=== PATIENT | female | born 1960 | race African-American/Black ===

== ENCOUNTER 2018-05-17 09:16 | Inpatient (IN) | payer MEDICARE, MEDICAID ==
[2018-05-17] MEDS ORDERED: diphenhydrAMINE 50 MG/ML VIAL ONE (09:28)
[2018-05-17] MEDS ORDERED: Ondansetron PF 4 MG/2 ML Vial ONE (09:35)
[2018-05-17 09:49] LABS: #Lymphocytes 1.3 thou/uL (1.20-3.40); #Monocytes 0.5 thou/uL (0.11-0.59); %Basophils 0.2 % (0.0-1.0); %Monocytes 3.8 % (0.0-10.0); %Neutrophils 85.9 % (42.0-75.0); Mean Corpuscular HGB CONC 31.6 g/dL (32.0-36.0); Mean Corpuscular Hemoglobin 28.8 pg (27.0-31.0); Mean Platelet Volume 6.8 fL (7.4-10.4); Platelet Count 316 thou/uL (130-400); RBC Distribution Width 13.1 % (11.5-14.5); Red Blood Cell (RBC) Count 5.57 mill/uL (4.20-5.40); White Blood Cell (WBC) Count 12.8 thou/uL (4.8-10.8)
[2018-05-17 09:53] LABS: PTT 25.9 SEC (22.9-36.1)
[2018-05-17 10:01] LABS: ALT (SGPT) 13 U/L (8-55); AST (SGOT) 23 U/L (5-34); Albumin 4.5 g/dL (3.5-5.0); Alkaline Phosphatase 116 U/L (40-150); Anion Gap 16 mmol/L (10-20); BUN (Urea Nitrogen) 4 mg/dL (9.8-20.1); Bilirubin, Total 0.5 mg/dL (0.2-1.2); CK (CPK) 400 U/L (29-168); Calc. Creatinine Clearance 0 mL/min (70-130); Calcium 9.8 mg/dL (7.8-10.44); Carbon Dioxide 25 mmol/L (22-29); Chloride 99 mmol/L (98-107); Estimated GFR-MDRD Greater than 90; Globulin 3.1 g/dL (2.4-3.5); Glucose 142 mg/dL (70-105); Potassium 3.6 mmol/L (3.5-5.1); Protein, Total 7.6 g/dL (6.0-8.3); Sodium 136 mmol/L (136-145)
[2018-05-17 10:03] LABS: CKMB 4.4 ng/mL (0-6.6); Troponin I Less than 0.010 ng/mL (< 0.028)
--- NOTE | 2018-05-17 10:03 | CT ---
BRAIN CT WITHOUT IV CONTRAST: History: 57-year-old female with history of stroke activation from [facility] with a positive M2 clot. The patient was sent here for brain perfusion and CTA. FINDINGS: There is a large abnormal area of low attenuation involving the left temporal, posterior frontal and parietal lobe regions, evidence for a very large left middle cerebral artery distribution infarct. Th ere is some focal opacities in the M2 segment region of the left middle cerebral artery. No evidence for acute hemorrhage. IMPRESSION: Essentially complete left middle cerebral artery distribution infarct changes with extensive edematou s changes. Focal calcific density in the M2 segment region of the left middle cerebral artery. No master dence for acute hemorrhage. There is a less than 2 mm diameter midline shift to the right. Dr. Servin is aware of the findings on this brain CT without contrast. POS: [facility]
--- NOTE | 2018-05-17 10:57 | CT ---
CT BRAIN PERFUSION: Date: 05-17-18 History: Stroke activation. M2 segment thrombus reported on outside study. Noncontrasted CT scan of t he brain just prior to this exam did demonstrate a large left MCA distribution infarction. FINDINGS: Materials Research Engineer images for the perfusion study demonstrate absence of flow and enhancement within the left midd le cerebral artery without significant enhancement of the collateral vessels in the left cerebral hem isphere compared to the right consistent with left MCA distribution infarction. The perfusion study i s nondiagnostic secondary to patient motion and area of penumbra is unable to be evaluated on this ex amination. IMPRESSION: 1. Nondiagnostic perfusion study secondary to patient motion, and a penumbra is not able to be evalua debora on this examination. The source images for the perfusion study again demonstrate large left MCA d istribution infarction which was noted on the noncontrasted CT exam also obtained earlier on this alfreda e. On the source images, there is no enhancement or flow seen within the left middle cerebral artery distribution with lack of significant collateral flow also on the left based on source images. 2. Above findings discussed with Dr. Servin on 05-17-18 at 1012 hours. POS: [facility]
[2018-05-17] MEDS ORDERED: Aspirin 300 MG Suppository ONE (11:13)
--- NOTE | 2018-05-17 13:07 | HP ---
PRIMARY CARE PHYSICIAN: Dr. Barry Eubanks, at [facility]. REASON FOR ADMISSION: Transfer from [facility] Emergency Room for acute left middle cer ebral artery cerebrovascular accident with right-sided weakness. HISTORY OF PRESENT ILLNESS: This is a 57-year-old -Omani female, who has a history of hype rtension, dyslipidemia, as well as history of recurrent deep vein thrombosis and pulmonary embolus, o n chronic anticoagulation therapy, who presented to [facility] Emergency Room for acute right-sided weakness and altered mental status. The patient last seen normal last night around 11:00 p.m. when she went to bed. Her mother was at [facility]. She reports that she woke up around 03:00 a.m. At that time, everything was fine, but she did not see the patient. She again woke up around 06:00 a.m., at that time she was trying to call he r and she was not responsive and she found the patient on the floor. At that time, she was unrespons laisha, she was not able to communicate, and she was having dense right upper and lower extremity weakne ss as well as facial droop. The patient's mother called paramedics, and subsequently, the patient wa s taken to [facility] Emergency Room. When patient went to [facility], at t hat time, patient was hypertensive. Stroke alert was activated from ambulance. The patient had CT b rain, which already showed large left MCA CVA and the patient was having right-sided weakness. Initi al NIH score was 29. Patient was needing perfusion study and that is why she was sent to our hospita . In our emergency room, the patient had a CT brain, which showed left MCA territory infarct with e xtensive edematous changes. CT brain reported focal calcific density in the M2 segment of the left M CA territory without any hemorrhage and there was slight midline shift. CT angiography with brain pe rfusion study was nondiagnostic, but it did show large left MCA distribution infarct. When I saw this patient, at that time, patient was unresponsive. She was not moving her right side. Initially, Cardene drip was started, but subsequently when blood pressure improved then Cardene drip was discontinued. At [facility] Emergency Room, the patient was started on Cardene drip. The patient was allergic to contrast, that is why she was given Benadryl and Solu-Medrol. REVIEW OF SYSTEMS: All review of systems tried to review with the patient, but unable to review at t his point, because patient is not following any commands. PAST MEDICAL HISTORY: Recurrent DVT and PE, chronic anticoagulation therapy with Xarelto, hypertensi on, dyslipidemia, cannabis abuse, tobacco abuse disorder. PAST SURGICAL HISTORY: Reviewed and negative. PAST PSYCHIATRIC HISTORY: Anxiety and depression. SOCIAL HISTORY: Patient has a history of smoking about 1 pack lasting for 2 days. She is smoking ma rijuana daily. She is a former drug abuser. She is currently on disability. She is single, lives b y herself. FAMILY HISTORY: No family history of coronary artery disease, stroke, or cancer. ALLERGIES: CONTRAST. CURRENT HOME MEDICATIONS: Ambien 12.5 mg p.o. at bedtime p.r.n., Xarelto 20 mg daily, Nexium 40 mg d aily, Lipitor 20 mg p.o. at bedtime, Tylenol #3 as needed basis, blood pressure medication. EMERGENCY ROOM COURSE: At [facility], patient was given Benadryl and Solu-Medrol. In [facility] emergency room, patient has received aspirin 300 mg rectally and Zofran initially. Cardene drip wa s started that was discontinued. Benadryl 50 mg was also given. PHYSICAL EXAMINATION: VITAL SIGNS: Currently, blood pressure 155/71, pulse 53, respiratory rate 14, temperature 96.4, satu ration 100% on room air, weight 68.3 kilograms. GENERAL: Patient is currently hypertensive, nonverbal, opens eyes on verbal command. HEAD: Normocephalic, atraumatic. EYES: The patient has a right gaze palsy. Pupils small and reactive to light. ENT: Oropharynx within normal limits. Moist mucous membranes. No oral lesion. No pharyngeal eryth michaela, no exudate. NECK: Supple, no JVD, no thyromegaly, no carotid bruit. LUNGS: Clear to auscultation without any rhonchi or rales. CARDIAC: S1 and S2 regular. No murmur, no gallop, no rub. ABDOMEN: Soft, bowel sounds present, nontender, nondistended. No organomegaly, no mass, no suprapub ic tenderness. BACK EXAMINATION: Unremarkable, no CVA tenderness. EXTREMITIES: Upper extremities, passive movement of all joints are normal. Lower extremities, passi ve movement of all joints are normal. Lower extremities, good distal pulsation. NEUROLOGIC: The patient is nonverbal. She opens eyes on verbal response. Speech is dysarthric, wili ble to communicate. Patient does have some right-sided facial droop, upper and lower extremity on th e right side is densely paraplegic. Left side spontaneous movement noted. Plantar extension on the right side. Sensation unable to assess. Reflexes symmetrical. Gait unable to assess. PSYCHIATRIC: Unable to assess. SKIN: No skin rash. HEMATOLOGICAL SYSTEM: No lymphadenopathy. SIGNIFICANT LABORATORY DATA: EKG showing sinus arrhythmia. CT brain with perfusion study showing la rge left MCA distribution infarction. CT brain without contrast showed left middle cerebral artery i nfarction with extensive edema. CBC: WBC 12.8, hemoglobin 16.0, platelets 316 with left shift. INR 1.0. BMP: Sodium 136, potassium 3.6, chloride 99, carbon dioxide 25, BUN 4, creatinine 0.78, gluco se 142, calcium 9.8. LFT: AST 23, ALT 13, alkaline phosphatase 116, albumin 4.5, CK 400, CK-MB 4.4, troponin I less than 0.010. [place] [facility] record reviewed. ASSESSMENT AND PLAN: 1. Acute encephalopathy due to acute cerebrovascular accident. 2. Acute right upper and lower extremity as well as facial weakness with global aphasia due to large left middle cerebral artery distribution infarct. 3. Hypertension with hypertensive emergency on admission. 4. Tobacco abuse disorder. 5. Marijuana abuse disorder. 6. Dyslipidemia. 7. History of deep vein thrombosis and pulmonary embolism, on chronic anticoagulation. 8. Gastroesophageal reflux disease. 9. History of drug abuse in past. PLAN: Admission in CCU for close neuro monitoring. Prognosis discussed with the patient's mother an lucille other family member at bedside in the emergency room. Discussed with them about option of PEG tube feeding if the patient does not have any meaningful recovery and if she fails swallow evaluation, carlota adkins in that case, they agreed with PEG tube placement. Initially, we will start with the tube feeding through the Dobbhoff tube, and eventually, if the patient does not have any improvement, then we will consider PEG tube placement. At that point, we will consult Gastroenterology. We are admitting thi s patient in CCU for close neuro check, because she is at high risk for aspiration as well as she has mild midline shift from large MCA. Family member agreed with intubation in case of respiratory dist ress. At this point, we will try to keep systolic blood pressure 160-180 and we will give her gentle IV fluid with NS 75 mL per hour, aspirin 300 mg rectally will be given. Once we have access of medi cation to give oral route through the tube, at that point we will resume cholesterol medication. We will continue the Lovenox 40 mg subcu daily for DVT prophylaxis, though the patient is taking Xarelto , which we will continue with the patient's oral intake resumed. We will give her Protonix 40 mg IV daily for GI prophylaxis. We will check urine drug screen, lipid profile, homocysteine, RPR as a par t of stroke workup. We will do echocardiography as a part of stroke workup and entire Stroke team wi ll be consulted including Neurology. This patient was not a candidate for any TPA given on the time of onset as well as she was not a cand idate for JENNIFER procedure based on Dr. Servin's discussion with the ER physician. Prognosis is guarded. CODE STATUS: Patient is FULL CODE. At this point, patient's mother is surrogate decision maker. Disposition plan based on clinical course. Most likely, this patient will need either rehab or SNF p lacement when patient is stabilized.
[2018-05-17] MEDS ORDERED: Eucerin (Mineral Oil/Petrolatum,White) 30 gm Jar TOP PRN (13:40)
[2018-05-17] MEDS ORDERED: Ondansetron PF 4 MG/2 ML Vial IVP PRN (13:40)
[2018-05-17] MEDS ORDERED: Labetalol HCl 100 MG/20 ML VIAL SLOW IVP PRN (13:40)
[2018-05-17] MEDS ORDERED: Sodium Chloride 0.65% Nasal 44 ML BOT EA NARE PRN (13:40)
[2018-05-17] MEDS ORDERED: Acetaminophen 650 MG Suppository PR PRN (13:40)
[2018-05-17] MEDS ORDERED: Bisacodyl 10 MG SUPP PR PRN (13:40)
[2018-05-17] MEDS ORDERED: Artificial Tears 18 DROP/0.9 ML EA EYE PRN (13:40)
[2018-05-17] MEDS: Sodium Chloride 0.9% 1,000 ML IV SCH (15:04)
[2018-05-17 15:26] VITALS: BMI 25.1
[2018-05-17] MEDS ORDERED: Iopamidol 370 76% 100 ML VIAL ONE (15:52)
[2018-05-17] MEDS: hydrALAZINE 20 MG/ML VIAL SLOW IVP PRN (16:21)
[2018-05-17 17:45] LABS: Bilirubin Negative (Negative); Blood, Urine Large (Negative); Clarity CLEAR (Clear); Glucose, Urine (Dipstick) Negative (Negative); Leukocyte Negative (Negative); Nitrite Negative (Negative); Protein, Urine (Dipstick) 30 mg/dL (Neg-Trace); Specific Gravity, Urine 1.038 (1.002-1.036)
[2018-05-17 17:48] LABS: Bacteria/HPF None Seen HPF (None Seen); Hyaline Casts/LPF 0-3 HYALINE CAST LPF (0-3 Hyaline); Pathc Cast-AUWi Flag 0.14 (0-2.49); RBC/HPF 21-50 HPF (0-3); Squamous Epithelial 0-3 HPF (0-3); WBC/HPF 0-3 HPF (0-3)
[2018-05-17 18:02] LABS: Amphetamine Not Detected (NotDetected); Barbiturates Screen Not Detected (NotDetected); Benzodiazepine Screen Not Detected (NotDetected); Cocaine Metabolite Screen Detected (NotDetected); Medtox Control Line Valid? VALID (VALID); Medtox Reader # READER 1; Methadone Not Detected (NotDetected); Methamphetamine Detected (NotDetected); Opiate Screen Not Detected (NotDetected); Oxycodone Screen Not Detected (NotDetected); Phencyclidine (PCP) Not Detected (NotDetected); THC/Cannabinoid Screen Detected (NotDetected); Tricyclic Screen Not Detected (NotDetected)
[2018-05-17] MEDS: Atorvastatin Calcium 40 MG TAB PO SCH (20:58)
[2018-05-17] MEDS ORDERED: Sodium Chloride 0.9% 500 ML IVPB SCH (22:30)
[2018-05-18 05:14] LABS: Prothrombin Time 13.4 SEC (12.0-14.7)
[2018-05-18 05:15] LABS: #Lymphocytes 2.2 thou/uL (1.20-3.40); #Monocytes 1.2 thou/uL (0.11-0.59); #Neutrophils 15.9 thou/uL (1.40-6.50); %Basophils 0.2 % (0.0-1.0); %Eosinophils 0.1 % (0.0-10.0); %Lymphocytes 11.2 % (21.0-51.0); %Monocytes 6.2 % (0.0-10.0); %Neutrophils 82.3 % (42.0-75.0); Hemoglobin 15.7 g/dL (12.0-16.0); Mean Corpuscular HGB CONC 30.9 g/dL (32.0-36.0); Mean Corpuscular Hemoglobin 28.5 pg (27.0-31.0); Mean Corpuscular Volume 92.1 fL (78.0-98.0); Mean Platelet Volume 6.9 fL (7.4-10.4); Platelet Count 284 thou/uL (130-400); RBC Distribution Width 13.3 % (11.5-14.5); White Blood Cell (WBC) Count 19.3 thou/uL (4.8-10.8)
[2018-05-18 05:33] LABS: ALT (SGPT) 12 U/L (8-55); AST (SGOT) 18 U/L (5-34); Alkaline Phosphatase 105 U/L (40-150); Anion Gap 12 mmol/L (10-20); BUN (Urea Nitrogen) 5 mg/dL (9.8-20.1); Bilirubin, Total 0.6 mg/dL (0.2-1.2); Calc. Creatinine Clearance 83 mL/min (70-130); Calcium 9.5 mg/dL (7.8-10.44); Carbon Dioxide 25 mmol/L (22-29); Cardiac Risk 3.1 (Less than 4.5); Chloride 102 mmol/L (98-107); Cholesterol 205 mg/dl (< 200 Desired); Estimated GFR-MDRD 90; Globulin 3.2 g/dL (2.4-3.5); Glucose 112 mg/dL (70-105); HDL Cholesterol 66 mg/dL (>60 Neg Risk); LDL Cholesterol, Calculated 123 mg/dL; Potassium 3.2 mmol/L (3.5-5.1); Protein, Total 7.2 g/dL (6.0-8.3); Sodium 136 mmol/L (136-145); Triglycerides 81 mg/dL (Less than 150)
[2018-05-18] MEDS: Sodium Chloride 0.9% 1,000 ML IV SCH (05:36)
[2018-05-18 05:52] LABS: Syphilis Antibody Nonreactive (Nonreactive); Syphilis Antibody Index 0.44 S/CO (<1.00 Non-Reactive)
[2018-05-18] MEDS: NS 0.9% w/ 20 MEQ KCL 1,000 ML/1,000 ML BAG IV SCH ×2 (07:52→19:25)
--- NOTE | 2018-05-18 09:11 | RAD ---
PORTABLE CHEST 1 VIEW: Date: 05/18/18 Time: 0749 hours HISTORY: Leukocytosis and CVA. FINDINGS/IMPRESSION: The heart size is normal. The lungs are expanded without lobar consolidation, pneumothoraces, or pleu ral effusions. There is some crowding of the interstitial markings in the right medial lung base. Thi s may represent a developing/early infiltrate. A follow-up exam would be helpful. POS: [facility]
[2018-05-18] MEDS: Aspirin 300 MG Suppository PR SCH (09:46)
[2018-05-18] MEDS: Pantoprazole 40 MG VIAL IVP SCH (09:46)
[2018-05-18] MEDS: Enoxaparin Sodium 40 MG/0.4 ML SYRINGE SC SCH (09:47)
--- NOTE | 2018-05-18 10:27 | PDOC.PN ---
- Subjective Encounter Start Date: 05/18/18 Encounter Start Time: 09:40 Patient seen and examined. No overnight events - Objective Resuscitation Status: Resuscitation Status FULL:Full Resuscitation MAR Reviewed: Yes Vital Signs & Weight: Vital Signs (12 hours) Temp 05/18/18 08:00 98.7 F 05/18/18 04:00 97.9 F 05/18/18 00:00 98.4 F Weight Weight 148 lb 9.465 oz Most Recent Monitor Data Heart Rate from ECG 54 NIBP 153/79 NIBP BP-Mean 103 Respiration from ECG 17 SpO2 100 I&O: 05/17/18 05/18/18 05/19/18 06:59 06:59 06:59 Intake Total 1670 224 Output Total 1120 70 Balance 550 154 Result Diagrams: 05/18/18 04:58 05/18/18 04:58 Radiology Reviewed by me: Yes (chest xray reviewed) EKG Reviewed by me: Yes (nsr) Phys Exam - Physical Examination Constitutional: NAD HEENT: PERRLA, moist MMs, sclera anicteric Neck: no JVD, supple Respiratory: no wheezing, no rales, no rhonchi Cardiovascular: RRR, no significant murmur, no rub Gastrointestinal: soft, non-tender, no distention, positive bowel sounds Musculoskeletal: no edema, pulses present right side dense weakness Lymphatic: no nodes Psychiatric: normal affect Skin: no rash, normal turgor Dx/Plan (1) Acute ischemic left middle cerebral artery (MCA) stroke Code(s): I63.512 - CEREB INFRC D/T UNSP OCCLS OR STENOS OF LEFT MID CEREB ART Status: Acute (2) Hypokalemia Code(s): E87.6 - HYPOKALEMIA Status: Acute (3) Leucocytosis Code(s): D72.829 - ELEVATED WHITE BLOOD CELL COUNT, UNSPECIFIED Status: Acute (4) Polysubstance abuse Code(s): F19.10 - OTHER PSYCHOACTIVE SUBSTANCE ABUSE, UNCOMPLICATED Status: Acute (5) Chronic anticoagulation Code(s): Z79.01 - NURSING HOME (CURRENT) USE OF ANTICOAGULANTS Status: Chronic (6) Dyslipidemia Code(s): E78.5 - HYPERLIPIDEMIA, UNSPECIFIED Status: Chronic (7) H/O deep venous thrombosis Code(s): Z86.718 - PERSONAL HISTORY OF OTHER VENOUS THROMBOSIS AND EMBOLISM Status: Chronic (8) Hypertension Code(s): I10 - ESSENTIAL (PRIMARY) HYPERTENSION Status: Chronic - Plan cont current plan of care, plan discussed w/ family, continue antibiotics, PT/OT , rn social services, DVT proph w/lovenox * given elevated wbc count and abnormal chest xray, will start empiric levaquin * stable for transfer to stroke floor * medication reviewed as below * symptomatic treatment * discussed with mother * stroke team on case. * change IVF with potassium Review of Systems - Review of Systems Other: unable to review due to aphasia and cognitive status - Medications/Allergies Allergies/Adverse Reactions: Allergies Allergy/AdvReac Type Severity Reaction Status Date / Time iodine Allergy Verified 05/17/18 12:31 Medications: Current Medications Acetaminophen (Tylenol) 650 mg AL Q4H PRN PRN Reason: Headache/Fever/Mild Pain (1-3) Artificial Tears (Tears Naturale) 2 drop EA EYE PRN PRN PRN Reason: Dry Eyes Aspirin (Aspirin) 300 mg AL DAILY [facility] Last Admin: 05/18/18 09:46 Dose: 300 mg Atorvastatin Calcium (Lipitor) 40 mg PO HS [facility] Last Admin: 05/17/18 20:58 Dose: Not Given Bisacodyl (Dulcolax) 10 mg AL DAILYPRN PRN PRN Reason: Constipation Enoxaparin Sodium (Lovenox) 40 mg SC 0900 [facility] Last Admin: 05/18/18 09:47 Dose: 40 mg Hydralazine HCl (Apresoline) 10 mg SLOW IVP Q4H PRN PRN Reason: SBP Greater Than 180 Last Admin: 05/17/18 16:21 Dose: 10 mg Potassium Chloride/Sodium Chloride (Ns 0.9% W/ 20 Meq Kcl) 1,000 ml in 1,000 mls @ 75 mls/hr IV .[id number] [facility] Last Admin: 05/18/18 07:52 Dose: 1,000 mls Levofloxacin 500 mg/ Device 100 mls @ 100 mls/hr IVPB Q24HR [facility] Labetalol HCl (Normodyne) 20 mg SLOW IVP Q4H PRN PRN Reason: SBP Greater Than 180 Mineral Oil/White Petrolatum (Eucerin Cream) 0 gm TOP BIDPRN PRN PRN Reason: Dry Skin Ondansetron HCl (Zofran) 4 mg IVP Q6H PRN PRN Reason: Nausea/Vomiting Pantoprazole Sodium (Protonix) 40 mg IVP DAILY [facility] Last Admin: 05/18/18 09:46 Dose: 40 mg Sodium Chloride (Cunningham Nasal Springer 0.65%) 0 ml EA NARE QIDPRN PRN PRN Reason: Nasal Congestion Sodium Chloride (Flush - Normal Saline) 10 ml IVF PRN PRN PRN Reason: Saline Flush Last Admin: 05/18/18 09:46 Dose: 10 ml
--- NOTE | 2018-05-18 13:50 | MRI ---
MRI BRAIN NONCONTRAST: HISTORY: CVA. COMPARISON: CT head from 05/17/2018. FINDINGS: A large wedge-shaped area of abnormal signal occupying the left basal ganglia, frontal and temporal l obes, includes the distribution of the left middle cerebral artery. There is restricted diffusion wi th abnormal ADC mapping signal loss. Increased FLAIR and T2 signal. Effacement of the involved sulc i. Effacement of the left ventricular system. Rightward shift of the septum pellucidum is now up to 0.8 cm. No new areas of infarct. Extensive motion artifact limits detail somewhat. IMPRESSION: Increasing cerebral edema associated with a large left middle cerebral artery infarct. Rightward jaleel ft of the septum pellucidum now up to 0.8 cm. POS: [facility]
[2018-05-18 14:11] LABS: ANA Symphony (Qualitative) Negative (Negative); CCP IgG Antibody 0.6 EliAU/mL (<7 Negative); EliA RAS New Method **** NEW METHOD ****; Rheumatoid Factor IgM Antibody 2.6 IU/mL (<3.5 Negative); dsDNA IgG Antibody Less than 0.5 IU/mL (<10 Negative)
--- NOTE | 2018-05-18 20:26 | ULT ---
CAROTID DUPLEX EXAMINATION: 05/18/18 INDICATION: History of stroke and hypertension. FINDINGS: There is complete occlusion of the left ICA. There is antegrade flow within both vertebral arteries. The peak systolic velocity in the right CCA is 93 cm/s and within the right ICA of 99 cm/s. The right ICA/CCA ratio is 1.0. The peak systolic velocity in the left CCA is 67 cm/s. IMPRESSION: 1. Complete occlusion of the left ICA. 2. No hemodynamically significant stenosis of the right ICA. POS: [facility]
[2018-05-18] MEDS: Atorvastatin Calcium 40 MG TAB PO SCH (20:31)
--- NOTE | 2018-05-18 22:03 | CON ---
DATE OF CONSULTATION: 05/18/2018 HISTORY OF PRESENT ILLNESS: Ms. De Dios is a 57-year-old female transferred from [facility], presented with right-sided weakness. She did not require any percutaneous intervention. I was consulted because of her presence in the Critical Care Unit. PAST MEDICAL HISTORY: 1. Remarkable for thromboembolic disease in the past on Xarelto. 2. Hypertension. 3. Liver disorder. 4. History of street drug use. 5. History of tobacco use. SOCIAL HISTORY: She is a pack a day smoker, smokes marijuana every day. The H& P says she is a former drug user. She is aphasic, so she can answer questions. FAMILY HISTORY: Negative for lung disease in early age. MEDICATIONS: Prior to admission, she was on Ambien, Xarelto, Nexium, Lipitor, Tylenol No.3. PHYSICAL EXAMINATION: VITAL SIGNS: Blood pressure 178/87, heart rate 50, respiratory rate 16, oximetry is 96. HEENT: Pupils are equal. Sclerae is anicteric. Extraocular movements appear full. NECK: Supple. She is hemiplegic on the right and aphasic. LUNGS: Clear. HEART: Regular rhythm. S1 and S2 are normal. ABDOMEN: Soft and nontender. EXTREMITIES: Without edema. LABORATORY AND X-RAY FINDINGS: Drug screens positive for methamphetamine, cocaine, and cannabinoids. White count is 19.3, hemoglobin 15.7, Sodium 136, potassium 3.2, chloride 102, bicarbonate 25, BUN 5, creatinine 0.79. Urine is remarkable for 21-50 red cells , 0-3 white cells. Coags are normal. IMPRESSION: Thrombotic cerebrovascular accident. PLAN: Continue supportive care. She has not having issues with airway protection at this time. [facility]
--- NOTE | 2018-05-18 23:17 | CON ---
DATE OF CONSULTATION: 05/18/2018 NEUROLOGIC CONSULTATION CONSULTING PHYSICIAN: Hospitalist Service. IMPRESSION: Left middle cerebral artery stroke, likely secondary to hypercoagulable state and possib ly some vasospasm related to her drug use. PLAN: 1. Repeat CT scan of the brain tomorrow to determine if there is any secondary bleeding. 2. Carotid ultrasound. 3. Continue current blood pressure management. 4. Restart anticoagulation once she can take medication by mouth. HISTORY OF PRESENT ILLNESS: Ms. De Dios is a 57-year-old white female with a known history of clottin g disorder and was supposed to be on anticoagulants. She came in with expressive aphasia and right-s ided weakness. Her initial CTA was inconclusive. She had an MRI of the brain, which subsequently re vealed a large area of ischemia involving the left middle cerebral artery territory. She was moved t o the ICU for monitoring. Her vital signs have been fairly stable, although she has gotten some teddy ycardic rhythms. She has remained responsive throughout the day. She has had some intermittent prabhu ing in her left side, but otherwise has been fairly stable. Echocardiogram has been performed, but t he results are pending. PAST MEDICAL HISTORY: As listed above. ALLERGIES: IODINE. SOCIAL HISTORY: Cocaine and methamphetamine use. FAMILY HISTORY: Not obtainable. REVIEW OF SYSTEMS: Not obtainable. PHYSICAL EXAMINATION: GENERAL: She is a thin middle-aged woman, lying in bed, in no apparent distress. VITAL SIGNS: Blood pressure 184/94, pulse 60 and sinus rhythm, respirations 18, temperature afebrile . Her sats are 99%. HEENT: Pupils are equal. Conjunctivae are clear. Eyes are deviated to the left. Cranium is normoc ephalic. NECK: Supple. EXTREMITIES: No cyanosis. NEUROLOGIC: She is mute, but would nod to questions and had followed some simple commands, although not completely. Cranial nerves showed a subtle facial droop. The right upper extremity is hypertoni c in a somewhat flexed posture. Relatively good tone in the right leg, but less spontaneous movement than as noted on the left. Plantar responses upgoing on the right, downgoing on the left. SUMMARY: This is a middle-aged woman who has suffered a fairly massive stroke in the left middle cer ebral artery territory. She has had some secondary cerebral edema and mild mass effect. We will con tinue close observation in the ICU for now. We can hopefully reestablish treatment once we have rule d out any secondary bleeding.
[2018-05-19 04:22] LABS: #Basophils 0.1 thou/uL (0.0-0.2); #Lymphocytes 2.1 thou/uL (1.20-3.40); #Monocytes 1.2 thou/uL (0.11-0.59); %Basophils 0.4 % (0.0-1.0); %Eosinophils 0.2 % (0.0-10.0); %Monocytes 7.2 % (0.0-10.0); %Neutrophils 79.2 % (42.0-75.0); Hemoglobin 16.3 g/dL (12.0-16.0); Mean Corpuscular HGB CONC 33.1 g/dL (32.0-36.0); Mean Corpuscular Hemoglobin 29.8 pg (27.0-31.0); Mean Corpuscular Volume 90.3 fL (78.0-98.0); Mean Platelet Volume 7.3 fL (7.4-10.4); Platelet Count 302 thou/uL (130-400); RBC Distribution Width 13.2 % (11.5-14.5); Red Blood Cell (RBC) Count 5.46 mill/uL (4.20-5.40); White Blood Cell (WBC) Count 16.4 thou/uL (4.8-10.8)
[2018-05-19 04:56] LABS: Anion Gap 15 mmol/L (10-20); BUN (Urea Nitrogen) 7 mg/dL (9.8-20.1); Calc. Creatinine Clearance 78 mL/min (70-130); Calcium 9.8 mg/dL (7.8-10.44); Carbon Dioxide 24 mmol/L (22-29); Chloride 100 mmol/L (98-107); Estimated GFR-MDRD 84; Glucose 117 mg/dL (70-105); Potassium 3.5 mmol/L (3.5-5.1); Sodium 135 mmol/L (136-145)
[2018-05-19] MEDS ORDERED: Mannitol 12.5 GM/50 ML IV SCH (06:15)
[2018-05-19] MEDS: Enoxaparin Sodium 40 MG/0.4 ML SYRINGE SC SCH (08:15)
--- NOTE | 2018-05-19 08:16 | CT ---
PRELIMINARY REPORT/[facility]/EMERGENTY AFTER-HOURS PROCEDURE Addendum created by Edgar Paulino MD on 05/19/2018 5:28 AM Central Time ([place] & [place]) THIS REPORT CONTA INS FINDINGS THAT MAY BE CRITICAL TO PATIENT CARE. The findings were verbally communicated via teleph one conference with CINTHIA DEAN at 5:27 AM MARKETING INTERN on 05/19/2018. The findings were acknowledged and und erstood. Initial Report created on 05/19/2018 4:48 AM Central Time ([place] & [place]) CT Head Without Intravenous Contrast EXAM DATE/TIME: 05/19/2018 4:24 AM CLINICAL HISTORY: 57 years old, female; Condition or disease; Other: Stroke; Patient HX: F/u stroke TECHNIQUE: Axial computed tomography images of the head/brain without intravenous contrast. COMPARISON: CTA Angio Head W WO Con W Perf 05/17/2018 9:34 AM FINDINGS: Brain: There is a large acute LEFT MCA territory infarct with hypoattenuation/loss of mcpherson-white diff erentiation involving the majority of the LEFT frontal temporoparietal lobes with brain edema resulti ng in mass effect and midline shift of approximately 9 mm, increased from prior. No acute intracrania l hemorrhage is appreciated at this time. Ventricles: There is partial effacement of the LEFT lateral ventricle with dilatation of the RIGHT te mporal horn. Bones/joints: Normal. No acute fracture. Sinuses: Normal as visualized. No acute sinusitis. Mastoid air cells: Normal as visualized. No mastoid effusion. Soft tissues: Normal. IMPRESSION: 1. Large LEFT MCA territory infarction as above with brain edema causing LEFT to RIGHT midline shift of 9 mm. 2. No acute intracranial hemorrhage is appreciated at this time. Thank you for allowing us to participate in the care of your patient. Dictated and Authenticated by: Edgar Paulino MD 05/19/2018 4:48 AM Central Time ([place] & [place]) FINAL REPORT EMERGENCY AFTER HOURS BRAIN CT WITHOUT IV CONTRAST: Date: 05/19/18 Time: 0425 hours FINDINGS/IMPRESSION: Large left MCA territory infarct with marked progressive brain edema with considerably worsening midl ine shift to the right, now measuring approximately 0.9 cm. No evidence for acute hemorrhage. Report in agreement with preliminary report given on-call by [facility]. POS: [facility]
[2018-05-19] MEDS: Pantoprazole 40 MG VIAL IVP SCH (08:18)
[2018-05-19] MEDS: Aspirin 300 MG Suppository PR SCH ×2 (08:19→12:10)
[2018-05-19] MEDS: NS 0.9% w/ 20 MEQ KCL 1,000 ML/1,000 ML BAG IV SCH (08:29)
[2018-05-19] MEDS ORDERED: Midazolam HCl 2 mg/2 ml Vial ONE (08:57)
[2018-05-19] MEDS ORDERED: Propofol 1,000 MG/100 ML VIAL IV ONE ×2 (08:58→13:40)
[2018-05-19] MEDS ORDERED: Midazolam HCl 2 mg/2 ml Vial IVP SCH (09:05)
[2018-05-19 09:51] LABS: Actual Bicarbonate (HCO3a) 23.1 mEq/L (22-28); Base Excess (BEa) 1.7 mEq/L (-2.0 to +3.0); CO2 Tension 28.4 mmHg (35.0-45.0); Calcium, Ionized 1.15 mmol/L (1.12-1.30); Carboxyhemoglobin (COHb) 1.1 gm% (0.0-3.0); Hemoglobin (Hb) 15.7 g/dL (12.0-16.0); O2 Tension (PaO2) 115.8 mmHg (80.0-100.0); Potassium - ABG Lab 3.09 mmol/L (3.70-5.30); pH, Arterial 7.53 (7.35-7.45)
[2018-05-19 09:55] LABS: Puncture Site RRA
--- NOTE | 2018-05-19 10:28 | PDOC.PN ---
- Subjective Encounter Start Date: 05/19/18 Encounter Start Time: 09:50 -: non-verbal pt is deteriorated, mother bedside, she is not responding - Objective Resuscitation Status: Resuscitation Status DNI:No Intubation MAR Reviewed: Yes Vital Signs & Weight: Vital Signs (12 hours) Temp Pulse 05/19/18 09:05 75 05/19/18 08:00 98.6 F 05/19/18 03:00 97 F L 05/18/18 23:00 98.6 F Weight Admit Weight 148 lb 9.465 oz Weight 148 lb 9.465 oz Most Recent Monitor Data Heart Rate from ECG 76 NIBP 120/87 NIBP BP-Mean 98 Respiration from ECG 16 SpO2 100 I&O: 05/18/18 05/19/18 05/20/18 06:59 06:59 06:59 Intake Total 1670 1113 Output Total 1120 2480 485 Balance 709 -3261 -935 Result Diagrams: 05/19/18 03:53 05/19/18 03:53 Radiology Reviewed by me: Yes (CT brain, MRI, carotid US noted) EKG Reviewed by me: Yes (NSR) Phys Exam - Physical Examination Constitutional: NAD HEENT: PERRLA, sclera anicteric Neck: no JVD, supple Respiratory: no wheezing, no rales, no rhonchi Cardiovascular: RRR, no significant murmur, no rub Gastrointestinal: soft, no distention, positive bowel sounds Musculoskeletal: no edema, pulses present unresponsive Lymphatic: no nodes Deviation from normal: unresponsive Skin: no rash, normal turgor Dx/Plan (1) Acute ischemic left middle cerebral artery (MCA) stroke Code(s): I63.512 - CEREB INFRC D/T UNSP OCCLS OR STENOS OF LEFT MID CEREB ART Status: Acute (2) Hypokalemia Code(s): E87.6 - HYPOKALEMIA Status: Acute (3) Leucocytosis Code(s): D72.829 - ELEVATED WHITE BLOOD CELL COUNT, UNSPECIFIED Status: Acute (4) Polysubstance abuse Code(s): F19.10 - OTHER PSYCHOACTIVE SUBSTANCE ABUSE, UNCOMPLICATED Status: Acute (5) Chronic anticoagulation Code(s): Z79.01 - RETIREMENT (CURRENT) USE OF ANTICOAGULANTS Status: Chronic (6) Dyslipidemia Code(s): E78.5 - HYPERLIPIDEMIA, UNSPECIFIED Status: Chronic (7) H/O deep venous thrombosis Code(s): Z86.718 - PERSONAL HISTORY OF OTHER VENOUS THROMBOSIS AND EMBOLISM Status: Chronic (8) Hypertension Code(s): I10 - ESSENTIAL (PRIMARY) HYPERTENSION Status: Chronic (9) Acute encephalopathy Code(s): G93.40 - ENCEPHALOPATHY, UNSPECIFIED Status: Acute (10) Brain herniation Code(s): G93.5 - COMPRESSION OF BRAIN Status: Acute (11) Cerebral edema Code(s): G93.6 - CEREBRAL EDEMA Status: Acute - Plan cont current plan of care, plan discussed w/ family * I spoke with mother about today's condition and discussed prognosis * pt's mother understood and she expressed wish that she does not want intubation but she was ok with doing CPR if needed * she also wanted to continue hydration and feeding * will consult neurosurgeon, to see if there is any option of care * if no further option, then will consult palliative care to discuss hospice to family * medication reviewed as below * symptomatic treatment * her prognosis is very poor. Review of Systems - Review of Systems Other: unable to review due to encephalopathy - Medications/Allergies Allergies/Adverse Reactions: Allergies Allergy/AdvReac Type Severity Reaction Status Date / Time iodine Allergy Verified 05/17/18 12:31 Medications: Current Medications Acetaminophen (Tylenol) 650 mg [place] Q4H PRN PRN Reason: Headache/Fever/Mild Pain (1-3) Artificial Tears (Tears Naturale) 2 drop EA EYE PRN PRN PRN Reason: Dry Eyes Aspirin (Aspirin) 300 mg [place] DAILY [facility] Last Admin: 05/18/18 09:46 Dose: 300 mg Atorvastatin Calcium (Lipitor) 40 mg PO HS [facility] Last Admin: 05/18/18 20:31 Dose: Not Given Bisacodyl (Dulcolax) 10 mg [place] DAILYPRN PRN PRN Reason: Constipation Enoxaparin Sodium (Lovenox) 40 mg SC 0900 [facility] Last Admin: 05/19/18 08:15 Dose: 40 mg Hydralazine HCl (Apresoline) 10 mg SLOW IVP Q4H PRN PRN Reason: SBP Greater Than 180 Last Admin: 05/17/18 16:21 Dose: 10 mg Potassium Chloride/Sodium Chloride (Ns 0.9% W/ 20 Meq Kcl) 1,000 ml in 1,000 mls @ 75 mls/hr IV .[id number] [facility] Last Admin: 05/19/18 08:29 Dose: 1,000 mls Levofloxacin 500 mg/ Device 100 mls @ 100 mls/hr IVPB Q24HR [facility] Labetalol HCl (Normodyne) 20 mg SLOW IVP Q4H PRN PRN Reason: SBP Greater Than 180 Mannitol (Mannitol) 25 gm IV Q6HR [facility] Mineral Oil/White Petrolatum (Eucerin Cream) 0 gm TOP BIDPRN PRN PRN Reason: Dry Skin Ondansetron HCl (Zofran) 4 mg IVP Q6H PRN PRN Reason: Nausea/Vomiting Pantoprazole Sodium (Protonix) 40 mg IVP DAILY [facility] Last Admin: 05/19/18 08:18 Dose: 40 mg Sodium Chloride ([place] Nasal [place] 0.65%) 0 ml EA NARE QIDPRN PRN PRN Reason: Nasal Congestion Sodium Chloride (Flush - Normal Saline) 10 ml IVF PRN PRN PRN Reason: Saline Flush Last Admin: 05/18/18 09:46 Dose: 10 ml
--- NOTE | 2018-05-19 10:34 | PDOC.EVN ---
Event Note - Event Note Event Note: advance care planning care note: This morning after examining pt and reviewing CT brain, I met to mother bedside , nurse taking care of her was present during conversation. Mainly I had discussion with mother about pt's current condition, her prognosis I also discussed with mother who states that she is next of care, about code status, goal of care, tube feeding, hydration and answered all her questions. Pt's mother states that she has belief in god and she does not want her to be alive on vent and she requested not keep her on ventilator but she was ok with CPR, discussed that only CPR may be futile if need arise without intubation. She wanted to continue at this time hydration and she is OK with tube feeding, I told that all these intervention are going to prolong poor quality of life today will see if neurosurgeon has to offer any thing, then will consider palliative care to discuss with family about hospice total time spent for these discussion 20 minutes.
[2018-05-19 13:37] LABS: Sodium 136 mmol/L (136-145)
[2018-05-19] MEDS: Mannitol 12.5 GM/50 ML IV SCH ×2 (14:12→18:10)
[2018-05-19] MEDS: hydrALAZINE 20 MG/ML VIAL SLOW IVP PRN ×2 (15:48→20:49)
--- NOTE | 2018-05-19 16:53 | PRG ---
DATE OF SERVICE: 05/19/2018 SUBJECTIVE: Ms. De Dios became progressively more obtunded this morning. Persistent hemiplegia. She did not have blown pupils. She has also been more hypertensive. She was reaching a point where I felt she was not going to protect her airway, so intubation was aubrey mmended after I met with her mother. OBJECTIVE: LUNGS: Remarkable for coarse equal breath sounds. HEART: Regular rhythm. ABDOMEN: Soft. EXTREMITIES: Without clubbing, cyanosis or edema. She is still hemiplegic. LABORATORY DATA: White count 16.4, hemoglobin 16.3, platelets 302,000. Sodium 135, potassium 3.5, chloride 100, bicarbonate 24, BUN 7, creatinine 0.84. Blood gas post intubation showed pH 7.53, CO2 28, PO2 115. Neurosurgery is planning to meet with the family. IMPRESSION: Massive thrombotic cerebrovascular accident with progressive decline with edema and midl ine shift on this morning CT. She is now intubated. CRITICAL CARE TIME: 35 minutes.
[2018-05-19] MEDS ORDERED: Propofol BOLUS 1,000 MG/100 ML VIAL IV PRN (17:09)
--- NOTE | 2018-05-19 17:47 | PRG ---
DATE OF PROGRESS: 05/19/2018 I reviewed records and imaging on [facility] and spoken with the family. Ms. De Dios is a 57-year-ol d woman with a hypercoagulability syndrome, who was transferred from [facility] in [facility] for large MCA infarct involving her dominant hemisphere. She is in the ICU currently and is ajit plegic on the right and aphasic. She is on the ventilator. The left side looks purposeful. I spent time around noon today and again at 5:00 today speaking with the patient's mother, Ms. Servin, and her sister and other relatives. Discussion focused on whether surgical intervention would be warranted for her in the future. I revi ewed with them the likely outcome of a craniectomy to relieve pressure and permanent dependence for c are, lack of communication skill and right hemiplegia, at best. This is not a life her mother would want for her and Ms. Servin has agreed not to pursue surgical intervention to decompress the cranium s hould the need arise in the future. Ms. De Dios can be managed medically with mannitol and aggressive medical therapy or she can be placed on comfort care and those decisions can be worked out within the coming 24-48 hours. Neurosurgery t jacquie will be around to answer questions during hospital stay, but the family expressed their wish not to have a hemicraniectomy.
--- NOTE | 2018-05-19 19:38 | OP ---
PROCEDURE: Intubation. DESCRIPTION OF PROCEDURE: The patient was not cooperative with mouth opening. I did not feel it wou ld be best to paralyze her to intubate her. A nasal trumpet with lidocaine jelly was placed in her l eft naris. Once this had been indwelling for a few minutes, this was removed and the bronchoscope wa s introduced into her left naris and passed down through her cords easily, followed by 7.5 endotrache al tube, which was secured above her griselda. Her left lower lobe, left upper lobe, right lower lobe, right middle lobe, and right upper lobe were well visualized. No endobronchial lesions were seen. There was no hypoxemia or hypotension with intubation. She was sedated with Versed and propofol once she was intubated.
[2018-05-19] MEDS: Atorvastatin Calcium 40 MG TAB PO SCH (20:48)
--- NOTE | 2018-05-20 | PRG ---
DATE OF SERVICE: 05/19/2018 NEUROLOGIC FOLLOWUP SUBJECTIVE: Ms. De Dios is now intubated secondary to some progressive lethargy that was necessitatin g protecting her airway. She is now on propofol drip. A followup CT scan of the brain showed a mode rate amount of shift from left to right with some early brainstem compression. The patient still has spontaneous movements on the left side despite the sedation. We started her on mannitol last evenin g. She has been consulted on by Neurosurgery for an opinion. Pulmonary Medicine is now on her case to manage the ventilator. I have explained to the family that situation is grave and prognosis for f unctional recovery is quite small. We will continue the current supportive measures and monitor clin ical course.
[2018-05-20] MEDS: NS 0.9% w/ 20 MEQ KCL 1,000 ML/1,000 ML BAG IV SCH ×2 (00:41→12:36)
[2018-05-20] MEDS: Propofol 1,000 MG/100 ML VIAL IV PRN ×2 (00:41→08:49)
[2018-05-20] MEDS: Mannitol 12.5 GM/50 ML IV SCH ×2 (01:07→06:31)
[2018-05-20 04:56] LABS: Anion Gap 15 mmol/L (10-20); BUN (Urea Nitrogen) 8 mg/dL (9.8-20.1); Calc. Creatinine Clearance 82 mL/min (70-130); Calcium 9.6 mg/dL (7.8-10.44); Carbon Dioxide 24 mmol/L (22-29); Chloride 105 mmol/L (98-107); Estimated GFR-MDRD 89; Glucose 118 mg/dL (70-105); Potassium 3.1 mmol/L (3.5-5.1); Sodium 141 mmol/L (136-145)
[2018-05-20 05:03] LABS: Hemoglobin 15.9 g/dL (12.0-16.0); Mean Corpuscular HGB CONC 31.4 g/dL (32.0-36.0); Mean Corpuscular Hemoglobin 28.3 pg (27.0-31.0); Mean Platelet Volume 7.4 fL (7.4-10.4); Platelet Count 284 thou/uL (130-400); RBC Distribution Width 13.1 % (11.5-14.5); Red Blood Cell (RBC) Count 5.63 mill/uL (4.20-5.40)
[2018-05-20 05:29] LABS: Band 8 % (5-11); Lymphocytes 2 % (21-51); MDiff Complete? YES; Monocytes 4 % (0-10); Neutrophil 86 % (42-75)
[2018-05-20 06:33] LABS: Actual Bicarbonate (HCO3a) 22.5 mEq/L (22-28); Base Excess (BEa) 1.3 mEq/L (-2.0 to +3.0); CO2 Tension 27.7 mmHg (35.0-45.0); Calcium, Ionized 1.19 mmol/L (1.12-1.30); Hemoglobin (Hb) 16.5 g/dL (12.0-16.0); O2 Tension (PaO2) 100.1 mmHg (80.0-100.0); Potassium - ABG Lab 3.17 mmol/L (3.70-5.30); pH, Arterial 7.53 (7.35-7.45)
[2018-05-20 06:36] LABS: Puncture Site LRA
[2018-05-20 06:37] LABS: ALV-art Gradient 150.475 (0-20)
[2018-05-20 08:00] VITALS: TEMP 99.1
--- NOTE | 2018-05-20 08:31 | PRG ---
DATE OF SERVICE: 05/20/2018 Overnight there has not been any remarkable changes. PHYSICAL EXAMINATION: VITAL SIGNS: Vital signs have been stable. HEENT: At this point her pupils are fixed and dilated. Her eyes are in midposition and doll's head maneuver, does not elicit any deviation. She has no corneal response. She continues to have a trunc al pain response with extensor posturing. She has been made DNR. Her serum osmolarity was 290 this morning. Going to hold her next mannitol dose. SUMMARY: Overall, the situation continues to deteriorate and I suspect that she will likely herniate and become brain .
--- NOTE | 2018-05-20 09:08 | PDOC.PN ---
- Subjective Encounter Start Date: 05/20/18 Encounter Start Time: 09:00 interim pt was nasally intubated, condition continue to deteriorate, now DNR, spoke with mother about condition - Objective Resuscitation Status: Resuscitation Status DNR:Do Not Resuscitate MAR Reviewed: Yes Vital Signs & Weight: Vital Signs (12 hours) Temp Pulse Resp BP 05/20/18 07:00 99.1 F 05/20/18 06:13 67 164/89 H 05/20/18 04:00 97.6 F 05/20/18 03:24 82 05/20/18 00:00 98.9 F 14 05/19/18 22:31 67 Weight Admit Weight 148 lb 9.465 oz Weight 148 lb 9.465 oz Most Recent Monitor Data Heart Rate from ECG 84 NIBP 162/96 NIBP BP-Mean 118 Respiration from ECG 28 SpO2 95 I&O: 05/19/18 05/20/18 05/21/18 06:59 06:59 06:59 Intake Total 1113 2341 Output Total 2480 3163 250 Balance -1367 -822 -250 Result Diagrams: 05/20/18 04:10 05/20/18 04:10 EKG Reviewed by me: Yes (nsr) Phys Exam - Physical Examination Constitutional: NAD intubated, sedated pupil not reactive to light Neck: no JVD, supple Respiratory: no wheezing, no rales, no rhonchi Cardiovascular: RRR, no significant murmur, no rub Gastrointestinal: soft, no distention, positive bowel sounds Musculoskeletal: no edema, pulses present unresponsive Lymphatic: no nodes Deviation from normal: unable to assess Skin: no rash, normal turgor Dx/Plan (1) Acute ischemic left middle cerebral artery (MCA) stroke Code(s): I63.512 - CEREB INFRC D/T UNSP OCCLS OR STENOS OF LEFT MID CEREB ART Status: Acute (2) Hypokalemia Code(s): E87.6 - HYPOKALEMIA Status: Acute (3) Leucocytosis Code(s): D72.829 - ELEVATED WHITE BLOOD CELL COUNT, UNSPECIFIED Status: Acute (4) Polysubstance abuse Code(s): F19.10 - OTHER PSYCHOACTIVE SUBSTANCE ABUSE, UNCOMPLICATED Status: Acute (5) Chronic anticoagulation Code(s): Z79.01 - HALFWAY (CURRENT) USE OF ANTICOAGULANTS Status: Chronic (6) Dyslipidemia Code(s): E78.5 - HYPERLIPIDEMIA, UNSPECIFIED Status: Chronic (7) H/O deep venous thrombosis Code(s): Z86.718 - PERSONAL HISTORY OF OTHER VENOUS THROMBOSIS AND EMBOLISM Status: Chronic (8) Hypertension Code(s): I10 - ESSENTIAL (PRIMARY) HYPERTENSION Status: Chronic - Plan cont current plan of care, plan discussed w/ family * prognosis is very poor * will consult palliative care * may be hospice candidate * mother does not want craniotomy or any other aggressive intervention from now on * may be comfort care. Review of Systems - Review of Systems Other: unable to assess due to intubated status and pt is unresponsive - Medications/Allergies Allergies/Adverse Reactions: Allergies Allergy/AdvReac Type Severity Reaction Status Date / Time iodine Allergy Verified 05/17/18 12:31 Medications: Current Medications Acetaminophen (Tylenol) 650 mg [place] Q4H PRN PRN Reason: Headache/Fever/Mild Pain (1-3) Artificial Tears (Tears Naturale) 2 drop EA EYE PRN PRN PRN Reason: Dry Eyes Aspirin (Aspirin) 300 mg [place] DAILY [facility] Last Admin: 05/19/18 12:10 Dose: Not Given Atorvastatin Calcium (Lipitor) 40 mg PO HS [facility] Last Admin: 05/19/18 20:48 Dose: Not Given Bisacodyl (Dulcolax) 10 mg [place] DAILYPRN PRN PRN Reason: Constipation Enoxaparin Sodium (Lovenox) 40 mg SC 0900 [facility] Last Admin: 05/19/18 08:15 Dose: 40 mg Hydralazine HCl (Apresoline) 10 mg SLOW IVP Q4H PRN PRN Reason: SBP Greater Than 180 Last Admin: 05/19/18 20:49 Dose: 10 mg Potassium Chloride/Sodium Chloride (Ns 0.9% W/ 20 Meq Kcl) 1,000 ml in 1,000 mls @ 75 mls/hr IV .[id number] [facility] Last Admin: 05/20/18 00:41 Dose: 1,000 mls Levofloxacin 500 mg/ Device 100 mls @ 100 mls/hr IVPB Q24HR [facility] Last Admin: 05/19/18 21:16 Dose: 100 mls Labetalol HCl (Normodyne) 20 mg SLOW IVP Q4H PRN PRN Reason: SBP Greater Than 180 Mannitol (Mannitol) 25 gm IV Q6HR [facility] Last Admin: 05/20/18 06:31 Dose: 25 gm Mineral Oil/White Petrolatum (Eucerin Cream) 0 gm TOP BIDPRN PRN PRN Reason: Dry Skin Ondansetron HCl (Zofran) 4 mg IVP Q6H PRN PRN Reason: Nausea/Vomiting Pantoprazole Sodium (Protonix) 40 mg IVP DAILY [facility] Last Admin: 05/19/18 08:18 Dose: 40 mg Propofol (Diprivan) 1,000 mg IV INF PRN; Protocol PRN Reason: TO ACHIEVE GOAL RASS Stop: 06/18/18 17:09 Last Admin: 05/20/18 08:49 Dose: 1,000 mg Propofol (Diprivan Bolus) 20 mg IV Q5MIN PRN PRN Reason: BREAKTHROUGH AGITATION Stop: 06/18/18 17:09 Sodium Chloride ([place] Nasal [place] 0.65%) 0 ml EA NARE QIDPRN PRN PRN Reason: Nasal Congestion Sodium Chloride (Flush - Normal Saline) 10 ml IVF PRN PRN PRN Reason: Saline Flush Last Admin: 05/18/18 09:46 Dose: 10 ml
[2018-05-20] MEDS: Enoxaparin Sodium 40 MG/0.4 ML SYRINGE SC SCH (09:10)
[2018-05-20] MEDS: Pantoprazole 40 MG VIAL IVP SCH (09:10)
[2018-05-20] MEDS: Aspirin 300 MG Suppository PR SCH (09:12)
--- NOTE | 2018-05-20 10:11 | PRG ---
DATE OF SERVICE: 05/20/2018 SUBJECTIVE: Ms. De Dios mother was in the waiting room this morning about 5:30 in the morning when I arrived for rounds. I sat and talked to her for a while. She has decided she does not want her daug hter resuscitated nor did she does want any type of surgery. We will continue with our current aggressive supportive care however. She wants her daughter to be a do not resuscitate patient. 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 OBJECTIVE: VITAL SIGNS: The patient is afebrile, blood pressure 162/96, heart rates in the 80s. HEENT: She has asymmetric sluggish pupils. LUNGS: Clear. HEART: Regular rhythm. ABDOMEN: Soft and nontender. No masses. EXTREMITIES: Without clubbing, cyanosis, or edema. LABORATORY DATA: White count 16, hemoglobin 15.9, platelets 284. Sodium 141, potassium 3.1, chlorid e 105, bicarbonate 24, BUN 8, creatinine 0.8, pH 7.53, CO2 27, pO2 of 100, sed rate is 14. IMPRESSION: Thrombotic cerebrovascular with significant midline shift and early herniation leading t o intubation. We will continue current supportive care.
[2018-05-20] MEDS: hydrALAZINE 20 MG/ML VIAL SLOW IVP PRN (10:40)
[2018-05-20 13:26] VITALS: BP 69/46
--- NOTE | 2018-05-21 06:50 | DS ---
DATE OF ADMISSION: 05/17/2018 DATE OF : 05/20/2018 at 6:25 p.m. PRIMARY CAUSE OF : 1. Acute ischemic left middle cerebral artery infarction. 2. Cerebral edema with brain herniation. 3. Encephalopathy. CONTRIBUTING DIAGNOSES: Hypertension, dyslipidemia, polysubstance abuse, left internal carotid arter y complete occlusion. PRIMARY PROCEDURES AND OPERATION: Endotracheal intubation. RADIOLOGICAL INVESTIGATION: CT brain, CT head and neck, CT angiography with brain perfusion study, M RI brain, carotid Doppler. [facility] SUMMARY: A 57-year-old female who has history of DVT and she was on chronic anticoagu lation therapy as well as hypertension and dyslipidemia. The patient was found unresponsive at home by mother. Onset of time was uncertain, but she was having aphasia and right-sided dense weakness. Initially, she was evaluated at [facility] emergency room and subsequently she was trans ferred to our emergency room. She was not a candidate for any TPA or any JENNIFER procedure as per Neur ology as well as neurosurgeon. The patient had brain perfusion study, which showed large left MCA CV A. The patient's prognosis was very poor on day 1. Her condition continued to deteriorate and she d eveloped cerebral edema as well as brain herniation, which was treated conservatively with mannitol. The patient and family member declined for craniotomy. Neurosurgeon was also involved in her care. Neurology was also following. This patient was also required intubation for airway protection. Patient's condition continued to deteriorate. She developed cerebral edema and brain herniation. The patient's mother was the next of kin and we discussed about prognosis and goal of care and she de cided DNR. This patient at 6:25 p.m. We had a lengthy discussion with the mother on the day of about goal of care, prognosis and providing support to the family. The patient was and the body was released for .
== END 2018-05-20 18:25 | disposition expired | DRG 64 ==
LOC: ERS 09:16 → CCU 12:55
PROVIDERS: ADMIT Internal Medicine; ATTEND Internal Medicine
PROC: 0BH18EZ Insertion of Endotracheal Airway into Trachea, Via Natural or Artificial Opening Endoscopic (ICD-10-PCS; principal; 2018-05-19)
PROC: 5A1945Z Respiratory Ventilation, 24-96 Consecutive Hours (ICD-10-PCS; 2018-05-19)
DX: I63.512 Cerebral infarction due to unspecified occlusion or stenosis of left middle cerebral artery (principal); G93.6 Cerebral edema; G93.5 Compression of brain; G81.91 Hemiplegia, unspecified affecting right dominant side; I16.1 Hypertensive emergency; G82.20 Paraplegia, unspecified; G93.49 Other encephalopathy; D68.59 Other primary thrombophilia; Z66 Do not resuscitate; E87.6 Hypokalemia; D72.829 Elevated white blood cell count, unspecified; F19.10 Other psychoactive substance abuse, uncomplicated; Z79.01 Long term (current) use of anticoagulants; E78.5 Hyperlipidemia, unspecified; Z86.718 Personal history of other venous thrombosis and embolism; I10 Essential (primary) hypertension; Z86.711 Personal history of pulmonary embolism; F32.9 Major depressive disorder, single episode, unspecified; F12.10 Cannabis abuse, uncomplicated; F17.210 Nicotine dependence, cigarettes, uncomplicated; R47.01 Aphasia; F41.9 Anxiety disorder, unspecified; R29.729 NIHSS score 29; R47.1 Dysarthria and anarthria; R29.810 Facial weakness; R06.03 Acute respiratory distress; I65.22 Occlusion and stenosis of left carotid artery
CPT/HCPCS: 0042T; 36415; 36416; 51702; 70450; 70496; 70551; 71045; 80048; 80053; 80061; 80306; 81001; 82550; 82553; 82805; 83090; 83520; 83930; 84484; 85025; 85610; 85730; 86038; 86200; 86225; 86780; 87086; 93005; 93306; 93880; 94002; 94003; 96365; 96375; C9113; G8978-GP-CM; G8979-GP-CK; G8987-GO-CM; G8988-GO-CJ; G8996-GN-CN; G8997-GN-CL; J0360; J1200; J1650; J1956; J2150; J2250; J2405; J2704